=== PATIENT | male | born 1995 | race American Indian/Alaskan Native ===

== ENCOUNTER 2017-10-06 17:16 | Emergency (ER) | payer OTHER ==
[2017-10-06 17:25] VITALS: BP 124/82
[2017-10-06 17:53] LABS: Mean Corpuscular HGB Conc 31 % (32-34); Mean Corpuscular Volume 74 fl (84-94); Platelet Count 239 K/mm3 (140-440); Red Blood Count 6.41 M/mm3 (3.65-5.03); Red Cell Distribution Width 14.3 % (13.2-15.2)
[2017-10-06 17:54] LABS: Hematocrit 47.2 % (35.5-45.6); Hemoglobin 14.7 gm/dl (11.8-15.2); Mean Corpuscular Hemoglobin 23 pg (28-32)
[2017-10-06 18:02] LABS: Bilirubin,Urine NEG (Negative); Blood,Urine SM (Negative); Color,Urine Yellow (Yellow); Mucus,Urine FEW /HPF; Protein,Urine <15 mg/dL mg/dL (Negative)
[2017-10-06 18:05] LABS: Albumin 4.3 g/dL (3.9-5); BUN/Creatinine Ratio 14; Blood Urea Nitrogen 14 mg/dL (9-20); Calcium 8.9 mg/dL (8.4-10.2); Hemolysis Index 182
[2017-10-06 18:25] LABS: Alanine Aminotransferase 14 units/L (7-56)
[2017-10-06 19:10] LABS: Basophils % (Manual) 0 % (0.0-1.8); Total Cells Counted 100
[2017-10-06 19:11] LABS: Platelet Estimate Consistent w Auto; Poikilocytosis 1+
== END 2017-10-06 19:56 | disposition left against medical advice (07) ==
LOC: ED 17:16
DX: R10.9 Unspecified abdominal pain (principal); Z53.21 Procedure and treatment not carried out due to patient leaving prior to being seen by health care provider
CPT/HCPCS: 36415; 80053; 81001; 85007; 85025

== ENCOUNTER 2017-12-06 00:20 | Emergency (ER) | payer OTHER ==
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
[2017-12-06] MEDS ORDERED: LIDOCAINE VISCOUS 2% PO ONE (02:10)
[2017-12-06] MEDS ORDERED: MOTRIN PO ONE (02:10)
[2017-12-06] MEDS ORDERED: ZOFRAN ODT PO ONE (02:10)
[2017-12-06] MEDS ORDERED: CLEOCIN PO ONE (03:34)
--- NOTE | 2017-12-06 03:38 | Emergency Department Report ---
HPI - General Chief Complaint: Sore Throat Time Seen by Provider: 12/06/17 03:28 - HPI HPI: The patient is a 22-year-old male presents for evaluation of throat pain. The patient reports constant and mild stinging in quality throat pain, exacerbated with swallowing, since 7 PM last night, when he too an Augmentin tablet. The patient denies dyspnea, neck stiffness, dysphagia, stridor, drooling, difficulty tolerating secretions, dysphonia, hoarseness of voice, abdominal pain, chest pain. ED Past Medical Hx - Past Medical History Previous Medical History?: No - Social History Smoking Status: Current Every Day Smoker - Medications Home Medications: Home Medications Medication Instructions Recorded Confirmed Last Taken Type Clindamycin [Clindamycin CAP] 450 mg PO TID 10 Days #45 cap 12/06/17 Unknown Rx HYDROcodone/APAP 7.5-325 [Larue 1 each PO Q8HR PRN #15 tablet 12/06/17 Unknown Rx 7.5-325 mg TAB] Ibuprofen [Motrin] 600 mg PO Q8H PRN #30 tablet 12/06/17 Unknown Rx ED Review of Systems ROS: Stated complaint: FB IN HIS THROAT Other details as noted in HPI Constitutional: denies: fever ENT: reports: throat or neck pain Respiratory: denies: cough, shortness of breath Cardiovascular: denies: chest pain Endocrine: denies unexplained weight loss or gain Gastrointestinal: denies: abdominal pain, nausea Genitourinary: denies: dysuria Musculoskeletal: denies: leg swelling Skin: denies: rash Neurological: denies: headache Hematological/Lymphatic: denies: easy bleeding or easy bruising Psych: denies sadness or hopelessness Physical Exam - Physical Exam Vital Signs: Vital Signs 12/06/17 12/06/17 12/06/17 00:21 01:05 01:53 Temperature 98.4 F 98.4 F Pulse Rate 76 75 Respiratory 16 16 16 Rate Blood Pressure 128/86 128/86 Blood Pressure [Left] O2 Sat by Pulse 98 98 99 Oximetry 12/06/17 01:55 Temperature Pulse Rate 53 L Respiratory 16 Rate Blood Pressure Blood Pressure 105/65 [Left] O2 Sat by Pulse 99 Oximetry Physical Exam: General: well-nourished, well-developed, no acute distress Head: Normocephalic, atraumatic Eyes: normal sclera ENT: Mucous membranes are pink and moist, gingival mild erythema and swelling present suggestive adjacent to right lower versus second molar, no fluctuance or crepitus, no sign of acute abscess at this time, no submandibular or sublingual fluctuance, swelling, or tenderness Neck: trachea midline, neck supple, No neck stiffness, no neck pain elicited whatsoever with extension or flexion of the neck, no cervical adenopathy Respiratory: Breath sounds equal bilaterally, no wheezing, rales, or rhonchi Cardio: S1 and S2 present, no murmurs, rubs, gallops, capillary refill is brisk Abdomen: Normoactive bowel sounds, soft abdomen, no tenderness Musc: No pitting edema Skin: No rash Neuro: no facial drooping, normal speech Psych: Normal affect ED Course Vital Signs 12/06/17 12/06/17 12/06/17 00:21 01:05 01:53 Temperature 98.4 F 98.4 F Pulse Rate 76 75 Respiratory 16 16 16 Rate Blood Pressure 128/86 128/86 Blood Pressure [Left] O2 Sat by Pulse 98 98 99 Oximetry 12/06/17 01:55 Temperature Pulse Rate 53 L Respiratory 16 Rate Blood Pressure Blood Pressure 105/65 [Left] O2 Sat by Pulse 99 Oximetry ED Medical Decision Making - Medical Decision Making The patient was seen and examined by myself. The patient is placed on a vehicle monitor technician and continuous pulse ox. On initial evaluation, the patient was found to be in no distress. Evaluation orders were placed. The patient is given viscous lidocaine and Motrin for pain. Soft tissue x-ray of the neck was obtained and was unremarkable. The patient was reevaluated and reported that their symptoms were markedly improved. The patient is stable for discharge with outpatient follow-up. The patient is given follow-up and return instructions. The patient expressed understanding and agreed with the plan. The patient is discharged in stable condition. Critical care attestation.: If time is entered above; I have spent that time in minutes in the direct care of this critically ill patient, excluding procedure time. ED Disposition Clinical Impression: Throat pain in adult, Cellulitis of gingiva Disposition: TO HOME OR SELFCARE Is pt being admited?: No Does the pt Need Aspirin: No Condition: Stable Instructions: Dental Caries (ED), Cellulitis (ED), Pharyngitis (ED) Referrals: CA SANDOVAL MD [Staff Physician] - 3-5 Days [facility] [Outside] - 3-5 Days Time of Disposition: 03:39
[2017-12-06 04:31] VITALS: BP 102/55
== END 2017-12-06 04:37 | disposition home or self-care (01) ==
LOC: ED 00:20
DX: K12.2 Cellulitis and abscess of mouth (principal); R07.0 Pain in throat; F17.200 Nicotine dependence, unspecified, uncomplicated
CPT/HCPCS: 70360; 99284; Q0162

== ENCOUNTER 2018-03-11 07:48 | Emergency (ER) | payer OTHER ==
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
[2018-03-11] MEDS ORDERED: NORCO 5/325 PO ONE (10:55)
[2018-03-11] MEDS ORDERED: MOTRIN PO ONE (10:55)
[2018-03-11] MEDS ORDERED: VALIUM PO ONE (10:55)
[2018-03-11] MEDS ORDERED: BOOSTRIX IM ONE (10:56)
[2018-03-11] MEDS ORDERED: TRIPLE ANTIBIOTIC TP ONE (10:58)
[2018-03-11 12:51] VITALS: BP 128/72
== END 2018-03-11 12:49 | disposition home or self-care (01) ==
LOC: ED 07:48
DX: S06.9X9A Unspecified intracranial injury with loss of consciousness of unspecified duration, initial encounter (principal); S60.414A Abrasion of right ring finger, initial encounter; S16.1XXA Strain of muscle, fascia and tendon at neck level, initial encounter; F41.9 Anxiety disorder, unspecified; R11.2 Nausea with vomiting, unspecified; R42 Dizziness and giddiness; Z88.5 Allergy status to narcotic agent; F17.200 Nicotine dependence, unspecified, uncomplicated; V89.2XXA Person injured in unspecified motor-vehicle accident, traffic, initial encounter; Y93.89 Activity, other specified; Y92.89 Other specified places as the place of occurrence of the external cause; Y99.8 Other external cause status
CPT/HCPCS: 70450; 72040; 72070; 72100; 90471; 90715; A6250